=== PATIENT | male | born 1960 | race American Indian/Alaskan Native ===

== ENCOUNTER 2020-03-18 06:13 | Observation (INO) | payer OTHER ==
[2020-03-11 09:46] LABS: Hematocrit 43.2 % (35.5-45.6); Hemoglobin 14.8 gm/dl (11.8-15.2); Mean Corpuscular HGB Conc 34 % (32-34); Mean Corpuscular Volume 90 fl (84-94); Platelet Count 189 K/mm3 (140-440); Red Blood Count 4.82 M/mm3 (3.65-5.03)
[2020-03-11 10:05] LABS: Alanine Aminotransferase 28 units/L (7-56); Blood Urea Nitrogen 8 mg/dL (9-20); Calcium 9.2 mg/dL (8.4-10.2); Hemolysis Index 24
[2020-03-11 10:11] LABS: BUN/Creatinine Ratio 13
--- NOTE | 2020-03-11 13:38 | Anesthesia Consultation ---
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; last albuterol use 2wks ago) Hx Sleep Apnea: Yes (compliant with CPAP) - Cardiovascular System Hx Hypertension: Yes Hx Heart Attack/AMI: No Hx Percutaneous Transluminal Coronary Angioplasty (PTCA): No Hx Cardia Arrhythmia: No - Central Nervous System CVA: No - Gastrointestinal Hx Gastroesophageal Reflux Disease: No - Endocrine Hx Renal Disease: No Hx Liver Disease: No Hx Non-Insulin Dependent Diabetes: Yes - Other Systems Hx Cancer: Yes (hx non-hodgkins lymphoma s/p chemo in 2013) Hx Obesity: Yes (BMI 37) - Additional Comments Anesthesia Medical History Comments: No hx anesthetic complications. Developed emphysema 2/2 chemotherapy agent in 2013. Was briefly on home O2 but none at this time. Follows with pulmonology. States most recent PFTs were 2 months ago and were normal. 4mets functional capacity.
[~2020-03-18 06:13] MED LIST: ACETAMINOPHEN 500 MG TAB PO SCH; GABAPENTIN 300 MG CAP PO NR; GENTAMICIN 200 MG in SODIUM CHLORIDE 0.9% 100 ML IV SCH; GENTAMICIN 40 MG/ML VIAL 2 ML IV SCH; LACTATED RINGERS 1,000 ML IV SCH; MAGNESIUM OXIDE 400 MG TAB PO SCH; MIDAZOLAM 2 MG/2 ML INJ IV NR; VANCOMYCIN/NS 1 GM/250 ML 1 GM/250 ML BAG IV SCH
[2020-03-18] MEDS ORDERED: BACTERIOSTATIC SODIUM CHLORIDE 0.9% 30 ML VIAL INFILTRATI ONE (06:16)
[2020-03-18] MEDS ORDERED: GENTAMICIN 40 MG/ML VIAL 2 ML ONE (07:16)
[2020-03-18] MEDS ORDERED: BUPIVACAINE/PF (0.5%) 5 MG/1 ML 30 ML VIAL INFILTRATI ONE ×2 (07:16→08:47)
[2020-03-18] MEDS ORDERED: SODIUM CHLORIDE 0.9% 0 ML ONE (07:16)
[2020-03-18] MEDS ORDERED: rifAMPin 600 MG VIAL ONE (07:16)
[2020-03-18] MEDS ORDERED: NEOMY 40 MG/POLYMYXIN B 200,000 UNITS/ML (GU) AMPULE IR ONE ×2 (07:17→08:47)
[2020-03-18] MEDS ORDERED: ONDANSETRON 4 MG/2 ML INJ IV PRN ×2 (07:19→10:00)
[2020-03-18] MEDS ORDERED: HYDROmorphone 1 MG/1 ML INJ IV PRN ×2 (07:19)
--- NOTE | 2020-03-18 07:19 | Anesthesia Day of Surgery ---
Anesthesia Day of Surgery - Day of Surgery Patient Examined: Yes Patient H&P Reviewed: Yes Patient is NPO: Yes
[2020-03-18] MEDS ORDERED: LIDOCAINE MPF (2%) 20 MG/1 ML VIAL 5 ML ONE (07:29)
[2020-03-18] MEDS ORDERED: propofoL 200 MG/20 ML VIAL IV ONE (07:30)
[2020-03-18] MEDS ORDERED: SODIUM CHLORIDE 0.9% 100 ML ONE (07:47)
[2020-03-18] MEDS ORDERED: SODIUM CHLORIDE 0.9% 500 ML 500 ML ONE (07:59)
[2020-03-18] MEDS ORDERED: SODIUM CHLORIDE 0.9% 100 ML IVPB IV ONE (08:48)
[2020-03-18] MEDS ORDERED: rifAMPin 600 MG VIAL IV ONE (08:48)
[2020-03-18] MEDS ORDERED: GENTAMICIN 40 MG/ML VIAL 2 ML IV ONE (08:48)
[2020-03-18] MEDS ORDERED: SODIUM CHLORIDE 0.9% IRR 1,500 ML BOTTLE IR ONE (08:49)
[2020-03-18] MEDS ORDERED: PHENYLEPHRINE/NS 1,000 MCG/10 ML SYRINGE (OR USE) IV ONE ×2 (08:54→10:01)
--- NOTE | 2020-03-18 09:57 | Short Stay Summary ---
Short Stay Documentation Date of service: 03/18/20 - History H&P: obtained from office - Allergies and Medications Current Medications: Allergies No Known Allergies Allergy (Verified 03/07/20 16:18) Home Medications Medication Instructions Recorded Confirmed Last Taken Type Finasteride [Proscar] 5 mg PO DAILY 03/07/20 03/07/20 03/17/20 History Ibuprofen [Motrin] 600 mg PO Q8H PRN 03/07/20 03/07/20 03/11/20 History Oxybutynin [Ditropan] 10 mg PO DAILY 03/07/20 03/11/20 03/17/20 History Tamsulosin [Flomax] 0.4 mg PO BID 03/07/20 03/11/20 03/17/20 History Albuterol Sulfate [Proventil Hfa] 2 puff IH PRN PRN 03/11/20 03/18/20 1 Week Ago History ~03/11/20 Aspirin [Adult Aspirin] 81 mg PO DAILY 03/11/20 03/11/20 03/11/20 History [place] 450 mg PO DAILY 03/11/20 03/11/20 03/17/20 History Cholecalciferol Vit D3 [Vitamin D3 1,000 unit PO BID 03/11/20 03/11/20 03/17/20 History 1,000 UNIT TAB] Cider Vinegar [Apple Cider Vinegar] 450 mg PO BID 03/11/20 03/11/20 03/17/20 History Gabapentin [Neurontin] 300 mg PO DAILY 03/11/20 03/11/20 03/17/20 History Melatonin [Melatonin 3MG TAB] 6 mg PO QHS 03/11/20 03/11/20 03/17/20 History Metformin HCl [metFORMIN] 1,000 mg PO BID 03/11/20 03/18/20 4 Days Ago History ~03/14/20 Naproxen [Naprosyn] 500 mg PO PRN PRN 03/11/20 03/11/20 03/11/20 History [place]-3S/Dha/Epa/Fish Oil [Fish 1,200 mg PO DAILY 03/11/20 03/11/20 03/17/20 History Oil 1,200 mg Softgel] Active Medications Acetaminophen (Tylenol) 1,000 mg PO PREOP BLU Stop: 03/18/20 23:59 Last Admin: 03/18/20 06:50 Dose: 1,000 mg Documented by: Gabapentin (Gabapentin) 300 mg PO PREOP NR Stop: 03/18/20 23:59 Last Admin: 03/18/20 06:50 Dose: 300 mg Documented by: Hydromorphone HCl (Dilaudid) 0.25 mg IV Q10MIN PRN PRN Reason: Pain, Moderate (4-6) Stop: 03/18/20 23:00 Hydromorphone HCl (Dilaudid) 0.5 mg IV Q10MIN PRN PRN Reason: Pain , Severe (7-10) Stop: 03/18/20 23:00 Vancomycin HCl (Vancomycin/Ns 1 Gm/250 Ml) 1 gm in 250 mls @ 166.667 mls/hr IV PREOP BLU; Protocol Stop: 03/18/20 23:59 Last Admin: 03/18/20 07:10 Dose: 166.667 mls/hr Documented by: Gentamicin Sulfate 200 mg/ (Sodium Chloride) 105 mls @ 200 mls/hr IV PREOP BLU Stop: 03/18/20 23:59 Lactated Ringer's (Lactated Ringers) 1,000 mls @ 100 mls/hr IV DIRECT BLU Stop: 03/18/20 23:59 Last Admin: 03/18/20 06:55 Dose: 100 mls/hr Documented by: Magnesium Oxide (Mag-Ox) 400 mg PO PREOP BLU Stop: 03/18/20 23:59 Last Admin: 03/18/20 06:50 Dose: 400 mg Documented by: Midazolam HCl (Versed) 2 mg IV PREOP NR Stop: 03/18/20 23:59 Last Admin: 03/18/20 07:00 Dose: 2 mg Documented by: Ondansetron HCl (Zofran) 4 mg IV ONCE PRN PRN Reason: Nausea And Vomiting Stop: 03/18/20 23:00 - Brief post op/procedure progress note Date of procedure: 03/18/20 Pre-op diagnosis: ED Post-op diagnosis: same Procedure: insertion ipp, scrotoplasty (24cm + 1cm RTE) Anesthesia: GETA Surgeon: LELIA BARBOSA Estimated blood loss: 50-100ml Pathology: list (SCROTAL SKIN) Condition: stable - Hospital course Hospital course: [facility]- PT HAS AT HOME POST OP INFO ON CHART wound looks good marshall out - Disposition Condition at discharge: Stable Short Stay Discharge Plan Follow up with: [facility] [Primary Care Provider] - 7 Days
[2020-03-18] MEDS ORDERED: DEXTROSE 50% IN WATER (25GM) 50 ML SYRINGE IV PRN (10:00)
[2020-03-18] MEDS ORDERED: NALOXONE 0.4 MG/1 ML INJ IV PRN (10:00)
[2020-03-18] MEDS ORDERED: ACETAMINOPHEN 325 MG TAB PO PRN (10:00)
[2020-03-18] MEDS ORDERED: ALBUTEROL 8.5 GM MDI INHALATION IH PRN (10:06)
--- NOTE | 2020-03-18 10:44 | Operative Report ---
PREOPERATIVE DIAGNOSIS: Erectile dysfunction. POSTOPERATIVE DIAGNOSIS: Erectile dysfunction, redundant scrotal skin. PROCEDURE: Insertion of inflatable penile prosthesis (Coloplast 24 cm with 1 cm rear tip injection specialist), insertion of pharmacologic agent in corporal bodies, scrotoplasty. SURGEON: Judah Nolasco MD MILK DRIER: Kathy Sorensen. ANESTHESIA: General. ESTIMATED BLOOD LOSS: Minimal. FLUIDS: Crystalloid. COMPLICATIONS: No complications. INDICATIONS: This 59-year-old gentleman was seen in the office for a history of erectile dysfunction, refractory to medical management. He has tried oral medications, Cialis, vacuum erection device, penile injections, reviewed all the options. He agreed to proceed with surgical intervention. Risks, benefits, and complications were explained. DESCRIPTION OF PROCEDURE: The patient was taken to the operative suite, placed in a supine position. After adequate general anesthesia, he was prepped and draped in a sterile fashion. Velazquez catheter was placed on the operative field, 6 mL of 0.25% Marcaine was injected into the right corporal body. Minimal curvature and no plaque could be appreciated. Next, transscrotal incision was made with the Bovie. Sharp dissection was taken down to the corporal bodies, yellow stay sutures were used for exposure as well as a metal [place] retractor. Bilateral corporotomies were made. Stay sutures were placed with 2-0 Vicryl, measuring tool revealed 25 cm length; therefore, a 24 cm Coloplast device with 1 cm rear tip injection specialist was prepped, placed in the corporal bodies without difficulty. Corporotomies were closed with 2-0 Vicryl in a running fashion, 125 mL reservoir was prepped, placed in the retropubic space via the right external ring, 110 mL sterile water was left in the reservoir, 20 mL saline was left in the cylinders. Three connections were used for the pump, the two cylinders as well as the reservoir using the quick click connection system. Insufflation revealed an adequate appearance of the device. No curvature could be appreciated. Throughout the procedure, copious irrigation was performed. Adequate hemostasis was achieved, antibiotic solution was used as an irrigant. The pump was placed in the dependent portion of the scrotum. Pursestring suture followed by the dartos layer using 2-0 Vicryl in a running fashion. The transverse incision was closed in a cephalad longitudinal closure. Scrotoplasty was performed to improve cosmetic appearance. A 3-0 Vicryl in interrupted fashion followed by [place] and a Mummy wrap was placed. ____ the device was 70% inflated. The patient was extubated and taken to recovery room. The patient has [place] and Bactrim at home. Kathy Sorensen was present throughout the procedure at the bedside to assist with dissection. JOB# [id number] CHARI/NTS
--- NOTE | 2020-03-18 11:00 | Post Anesthesia Evaluation ---
- Post Anesthesia Evaluation Patient Participated: Yes Airway Patent: Yes Stable Respiratory Function: Yes Nausea/Vomiting: No Temp > 96.8F: Yes Pain Manageable: Yes Adequeate Hydration: Yes Anesthesia Complications: No Block Receding Appropriately: Not Applicable Patient on Ventilator: No
[2020-03-18] MEDS ORDERED: ALBUTEROL 2.5 MG/3 ML NEBU IH PRN (12:00)
[2020-03-18] MEDS: INSULIN REGULAR, HUMAN 100 UNIT/ML 3ML VIAL SUB-Q SCH ×3 (12:17→22:48)
[2020-03-18] MEDS: HYDROcodone/ACETAMINOPHEN 5-325 MG TAB PO PRN ×2 (12:19→15:12)
--- NOTE | 2020-03-18 12:52 | Consultation ---
History of Present Illness - Reason for Consult Consult date: 03/18/20 Medical management Requesting physician: LELIA BARBOSA - History of Present Illness 59-year-old male patient with erectile dysfunction evaluated by urology Patient underwent insertion ipp, scrotoplasty (24cm + 1cm RTE) procedure Patient had multiple medical problems And hospitalist service was consulted for medical management Patient has no new complaints today Except for some pain Past History Past Medical History: diabetes, hypertension, hyperlipidemia, other (Peripheral neuropathy, erectile dysfunction) Past Surgical History: Other (s/p Penile prosthesis) Social history: denies: smoking, alcohol abuse, prescription drug abuse Family history: no significant family history Medications and Allergies Allergies Allergy/AdvReac Type Severity Reaction Status Date / Time No Known Allergies Allergy Verified 03/07/20 16:18 Home Medications Medication Instructions Recorded Confirmed Last Taken Type Finasteride [Proscar] 5 mg PO DAILY 03/07/20 03/07/20 03/17/20 History Ibuprofen [Motrin] 600 mg PO Q8H PRN 03/07/20 03/07/20 03/11/20 History Oxybutynin [Ditropan] 10 mg PO DAILY 03/07/20 03/11/20 03/17/20 History Tamsulosin [Flomax] 0.4 mg PO BID 03/07/20 03/11/20 03/17/20 History Albuterol Sulfate [Proventil Hfa] 2 puff IH PRN PRN 03/11/20 03/18/20 1 Week Ago History ~03/11/20 Aspirin [Adult Aspirin] 81 mg PO DAILY 03/11/20 03/11/20 03/11/20 History [place] 450 mg PO DAILY 03/11/20 03/11/20 03/17/20 History Cholecalciferol Vit D3 [Vitamin D3 1,000 unit PO BID 03/11/20 03/11/20 03/17/20 History 1,000 UNIT TAB] Cider Vinegar [Apple Cider Vinegar] 450 mg PO BID 03/11/20 03/11/20 03/17/20 History Gabapentin [Neurontin] 300 mg PO DAILY 03/11/20 03/11/20 03/17/20 History Melatonin [Melatonin 3MG TAB] 6 mg PO QHS 03/11/20 03/11/20 03/17/20 History Metformin HCl [metFORMIN] 1,000 mg PO BID 03/11/20 03/18/20 4 Days Ago History ~03/14/20 Naproxen [Naprosyn] 500 mg PO PRN PRN 03/11/20 03/11/20 03/11/20 History [place]-3S/Dha/Epa/Fish Oil [Fish 1,200 mg PO DAILY 03/11/20 03/11/20 03/17/20 History Oil 1,200 mg Softgel] Active Meds: Active Medications Acetaminophen (Tylenol) 1,000 mg PO PREOP BLU Stop: 03/18/20 23:59 Last Admin: 03/18/20 06:50 Dose: 1,000 mg Documented by: Acetaminophen (Tylenol) 650 mg PO Q4H PRN PRN Reason: Pain MILD(1-3)/Fever >100.5/WERNER Hydrocodone Bitart/Acetaminophen ([place] 5/325) 2 each PO Q6H PRN PRN Reason: Pain, Moderate (4-6) Albuterol (Proventil) 2.5 mg IH Q4HRT PRN PRN Reason: Shortness Of Breath Cholecalciferol (Vitamin D3) 1,000 unit PO BID BLU Dextrose (D50w (25gm) Syringe) 50 ml IV Q30MIN PRN; Protocol PRN Reason: Hypoglycemia Finasteride (Proscar) 5 mg PO DAILY BLU Gabapentin (Gabapentin) 300 mg PO PREOP NR Stop: 03/18/20 23:59 Last Admin: 03/18/20 06:50 Dose: 300 mg Documented by: Gabapentin (Gabapentin) 300 mg PO DAILY [facility] Vancomycin HCl (Vancomycin/Ns 1 Gm/250 Ml) 1 gm in 250 mls @ 166.667 mls/hr IV PREOP BLU; Protocol Stop: 03/18/20 23:59 Last Admin: 03/18/20 07:10 Dose: 166.667 mls/hr Documented by: Gentamicin Sulfate 200 mg/ (Sodium Chloride) 105 mls @ 200 mls/hr IV PREOP BLU Stop: 03/18/20 23:59 Sodium Chloride (Nacl 0.45% 1000 Ml) 1,000 mls @ 125 mls/hr IV DIRECT BLU Insulin Human Regular (Humulin R) 0 unit SUB-Q ACHS BLU; Protocol Magnesium Oxide (Mag-Ox) 400 mg PO PREOP BLU Stop: 03/18/20 23:59 Last Admin: 03/18/20 06:50 Dose: 400 mg Documented by: Metformin HCl (Glucophage) 1,000 mg PO BIDDIAB [facility] Midazolam HCl (Versed) 2 mg IV PREOP NR Stop: 03/18/20 23:59 Last Admin: 03/18/20 07:00 Dose: 2 mg Documented by: Morphine Sulfate (Morphine) 2 mg IV Q4H PRN PRN Reason: Pain, Moderate (4-6) Naloxone HCl (Naloxone) 0.1 mg IV Q2MIN PRN PRN Reason: Res Rate </= 8 or 02 SAT < 92% Ondansetron HCl (Zofran) 4 mg IV ONCE PRN PRN Reason: Nausea And Vomiting Stop: 03/18/20 23:00 Ondansetron HCl (Zofran) 4 mg IV Q8H PRN PRN Reason: Nausea And Vomiting Oxybutynin Chloride (Ditropan) 10 mg PO DAILY [facility] Sodium Chloride (Sodium Chloride Flush Syringe 10 Ml) 10 ml IV BID [facility] Sodium Chloride (Sodium Chloride Flush Syringe 10 Ml) 10 ml IV PRN PRN PRN Reason: LINE FLUSH Tamsulosin HCl (Flomax) 0.4 mg PO BID [facility] Zolpidem Tartrate (Ambien) 5 mg PO QHS PRN PRN Reason: Insomnia Review of Systems Constitutional: no weight loss, no weight gain Cardiovascular: no chest pain, no shortness of breath Respiratory: no cough, no shortness of breath Gastrointestinal: no abdominal pain, no nausea, no vomiting Genitourinary Male: other (Postop pain), no dysuria, no hematuria Musculoskeletal: no myalgias, no arthritis Integumentary: no rash, no lesions Neurological: no tingling, no seizures Psychiatric: no anxiety, no depression Endocrine: no cold intolerance, no heat intolerance Hematologic/Lymphatic: no easy bruising, no easy bleeding Allergic/Immunologic: no urticaria, no allergic rhinitis Exam - Constitutional Vitals: Temp Pulse Resp BP Pulse Ox 98.0 F 70 22 112/79 97 03/18/20 11:33 03/18/20 11:33 03/18/20 11:33 03/18/20 11:33 03/18/20 11:33 General appearance: Present: mild distress, other (Postop pain) - EENT Eyes: Present: PERRL, EOM intact - Neck Neck: Present: supple, normal ROM - Respiratory Respiratory effort: normal Respiratory: bilateral: diminished, negative: rales, rhonchi, wheezing - Cardiovascular Rhythm: regular Heart Sounds: Present: S1 & S2 - Extremities Extremities: no ischemia, No edema - Abdominal General gastrointestinal: Present: soft, non-tender, non-distended, normal bowel sounds - Integumentary Integumentary: Present: clear, warm - Musculoskeletal Musculoskeletal: strength equal bilaterally - Psychiatric Psychiatric: appropriate mood/affect, cooperative - Neurologic Neurologic: moves all extremities Results - Labs CBC & Chem 7: 03/11/20 09:30 03/11/20 09:30 Labs: Abnormal lab results 03/18/20 03/18/20 Range/Units 07:01 10:14 POC Glucose 221 H 196 H (70-105) mg/dL Assessment and Plan --Type 2 diabetes mellitus; Accu-Chek sliding scale coverage ADA diet Oral hypoglycemics, insulin as needed --Hypertension; moderate control Resume home antihypertensives As needed hydralazine --Diabetic neuropathy; Continue gabapentin and supportive care --History of erectile dysfunction; S/p penile prosthesis placement Postop management per urology --Obesity; BMI 37.3 Patient needs weight reduction when medically stable Dietary modification exercise as tolerated and weight reduction --DVT prophylaxis; SCDs, defer pharmacologic anticoagulation to urology We will closely monitor the patient and adjust the management as needed Thank you for this consultation we will follow the patient along with you
[2020-03-18] MEDS: MORPHINE 2 MG/1 ML INJ IV PRN ×2 (15:07→20:19)
[2020-03-18] MEDS: metFORMIN 500 MG TAB PO SCH (17:38)
[2020-03-18] MEDS ORDERED: oxyCODONE /ACETAMINOPHEN 5-325MG TAB PO PRN (20:07)
[2020-03-18] MEDS ORDERED: NON-FORMULARY EACH (Metformin Hcl [Metformin] 1,000 MG) PO SCH (22:00)
[2020-03-18] MEDS ORDERED: ZOLPIDEM 5 MG TAB PO PRN (22:00)
[2020-03-18] MEDS: CHOLECALCIFEROL (VIT D3) 1000 UNIT (25 mcg) TAB PO SCH (22:37)
[2020-03-18] MEDS: TAMSULOSIN 0.4 MG CAP PO SCH (22:37)
[2020-03-18] MEDS: SODIUM CHLORIDE 0.45% 1000 ML 1,000 ML IV SCH (22:37)
[2020-03-19] MEDS: MORPHINE 2 MG/1 ML INJ IV PRN (03:44)
[2020-03-19] MEDS: HYDROcodone/ACETAMINOPHEN 5-325 MG TAB PO PRN (06:21)
[2020-03-19] MEDS: SODIUM CHLORIDE 0.45% 1000 ML 1,000 ML IV SCH (06:26)
[2020-03-19 08:45] VITALS: BP 133/79
[2020-03-19] MEDS: TAMSULOSIN 0.4 MG CAP PO SCH (09:24)
[2020-03-19] MEDS: metFORMIN 500 MG TAB PO SCH (09:24)
[2020-03-19] MEDS: INSULIN REGULAR, HUMAN 100 UNIT/ML 3ML VIAL SUB-Q SCH (09:24)
[2020-03-19] MEDS: CHOLECALCIFEROL (VIT D3) 1000 UNIT (25 mcg) TAB PO SCH (09:24)
[2020-03-19] MEDS ORDERED: GABAPENTIN 300 MG CAP PO SCH (10:00)
[2020-03-19] MEDS ORDERED: OXYBUTYNIN 5 MG TAB PO SCH (10:00)
[2020-03-19] MEDS ORDERED: FINASTERIDE 5 MG TAB PO SCH (10:00)
--- NOTE | 2020-03-19 12:23 | Progress Note ---
Assessment and Plan Assessment and plan: --Type 2 diabetes mellitus; Accu-Chek sliding scale coverage ADA diet Oral hypoglycemics, insulin as needed --Hypertension; well controlled Resume home antihypertensives As needed hydralazine --Diabetic neuropathy; Continue gabapentin and supportive care --History of erectile dysfunction; S/p penile prosthesis placement Postop management per urology --Obesity; BMI 37.3 Patient needs weight reduction when medically stable Dietary modification exercise as tolerated and weight reduction Medically stable for discharge Patient needs to follow-up with primary care physician for her medical needs I will sign off Thank you for this consultation History Interval history: Patient has no new complaints Urology planning to discharge the patient Vital signs reviewed Hospitalist Physical - Physical exam Narrative exam: No changes in the physical - Constitutional Vitals: Temp Pulse Resp BP Pulse Ox 98.3 F 100 H 18 133/79 98 03/19/20 08:10 03/19/20 08:10 03/19/20 08:10 03/19/20 08:10 03/19/20 08:10 Results - Labs CBC & Chem 7: 03/11/20 09:30 03/11/20 09:30 Labs: Laboratory Last Values WBC 5.3 K/mm3 (4.5-11.0) 03/11/20 09:30 RBC 4.82 M/mm3 (3.65-5.03) 03/11/20 09:30 Hgb 14.8 gm/dl (11.8-15.2) 03/11/20 09:30 Hct 43.2 % (35.5-45.6) 03/11/20 09:30 MCV 90 fl (84-94) 03/11/20 09:30 MCH 31 pg (28-32) 03/11/20 09:30 MCHC 34 % (32-34) 03/11/20 09:30 RDW 14.0 % (13.2-15.2) 03/11/20 09:30 Plt Count 189 K/mm3 (140-440) 03/11/20 09:30 Sodium 136 mmol/L (137-145) L 03/11/20 09:30 Potassium 4.3 mmol/L (3.6-5.0) 03/11/20 09:30 Chloride 99.0 mmol/L (98-107) 03/11/20 09:30 Carbon Dioxide 28 mmol/L (22-30) 03/11/20 09:30 Anion Gap 13 mmol/L 03/11/20 09:30 BUN 8 mg/dL (9-20) L 03/11/20 09:30 Creatinine 0.6 mg/dL (0.8-1.3) L 03/11/20 09:30 Estimated GFR > 60 ml/min 03/11/20 09:30 BUN/Creatinine Ratio 13 % 03/11/20 09:30 Glucose 240 mg/dL (75-100) H 03/11/20 09:30 POC Glucose 274 mg/dL (70-105) H 03/19/20 08:13 Calcium 9.2 mg/dL (8.4-10.2) 03/11/20 09:30 Total Bilirubin 0.40 mg/dL (0.1-1.2) 03/11/20 09:30 AST 22 units/L (5-40) 03/11/20 09:30 ALT 28 units/L (7-56) 03/11/20 09:30 Alkaline Phosphatase 71 units/L (35-129) 03/11/20 09:30 Total Protein 7.2 g/dL (6.3-8.2) 03/11/20 09:30 Albumin 4.0 g/dL (3.9-5) 03/11/20 09:30 Albumin/Globulin Ratio 1.3 % 03/11/20 09:30 Coronavirus (PCR) Negative (Negative) 03/11/20 Unknown Velazquez/IV: Voiding Method Urinal IV Catheter Type [Right Peripheral IV Forearm] Active Medications - Current Medications Current Medications: Generic Name Dose Route Start Last Admin Trade Name Freq PRN Reason Stop Dose Admin Acetaminophen 650 mg 03/18/20 10:00 Tylenol PO Q4H PRN Pain MILD(1-3)/Fever >100.5/WERNER Hydrocodone Bitart/Acetaminophen 2 each 03/18/20 10:00 03/19/20 06:21 [place] 5/325 PO 2 each Q6H PRN Administration Pain, Moderate (4-6) Albuterol 2.5 mg 03/18/20 12:00 Proventil IH Q4HRT PRN Shortness Of Breath Cholecalciferol 1,000 unit 03/18/20 22:00 12/01/20 09:24 Vitamin D3 PO 1,000 unit BID BLU Administration Dextrose 50 ml 03/18/20 10:00 D50w (25gm) Syringe IV Q30MIN PRN Hypoglycemia Protocol Finasteride 5 mg 03/19/20 10:00 03/19/20 09:24 Proscar PO 5 mg DAILY BLU Administration Gabapentin 300 mg 03/19/20 10:00 03/19/20 09:24 Gabapentin PO 300 mg DAILY BLU Administration Sodium Chloride 1,000 mls @ 125 mls/hr 03/18/20 10:00 03/19/20 06:26 Nacl 0.45% 1000 Ml IV 125 mls/hr DIRECT BLU Administration Insulin Human Regular 0 unit 03/18/20 22:00 03/19/20 09:24 Humulin R SUB-Q 4 unit ACHS BLU Administration Protocol Metformin HCl 1,000 mg 03/18/20 17:00 03/19/20 09:24 Glucophage PO 1,000 mg BIDDIAB BLU Administration Morphine Sulfate 2 mg 03/18/20 10:00 03/19/20 03:44 Morphine IV 2 mg Q4H PRN Administration Pain, Moderate (4-6) Naloxone HCl 0.1 mg 03/18/20 10:00 Naloxone IV Q2MIN PRN Res Rate </= 8 or 02 SAT < 92% Ondansetron HCl 4 mg 03/18/20 10:00 Zofran IV Q8H PRN Nausea And Vomiting Oxybutynin Chloride 10 mg 03/19/20 10:00 03/19/20 09:24 Ditropan PO 10 mg DAILY BLU Administration Sodium Chloride 10 ml 03/18/20 10:00 03/19/20 09:25 Sodium Chloride Flush Syringe 10 Ml IV 10 ml BID BLU Administration Sodium Chloride 10 ml 03/18/20 10:00 Sodium Chloride Flush Syringe 10 Ml IV PRN PRN LINE FLUSH Tamsulosin HCl 0.4 mg 03/18/20 22:00 03/19/20 09:24 Flomax PO 0.4 mg BID BLU Administration Zolpidem Tartrate 5 mg 03/18/20 22:00 03/18/20 22:37 Ambien PO 5 mg QHS PRN Administration Insomnia
== END 2020-03-19 12:15 | disposition home or self-care (01) ==
LOC: OR 06:13 → 3B-SURG 10:00
PROVIDERS: ADMIT Urology; ATTEND Urology
DX: N52.9 Male erectile dysfunction, unspecified (principal); Z20.828 Contact with and (suspected) exposure to other viral communicable diseases; E29.1 Testicular hypofunction; I10 Essential (primary) hypertension; E11.40 Type 2 diabetes mellitus with diabetic neuropathy, unspecified; E66.9 Obesity, unspecified; Z79.4 Long term (current) use of insulin; Z71.3 Dietary counseling and surveillance; Z79.82 Long term (current) use of aspirin; Z68.37 Body mass index [BMI] 37.0-37.9, adult; Z79.899 Other long term (current) drug therapy
CPT/HCPCS: 36415; 54401; 80053; 82962; 85027; 88305; 96361; 96372; 96374; 96376; C1813; G0378; J1170; J1580; J2250; J2270; J2370; J2405; J2704; J3370; J3490; J7030; J7040; J7120; U0003; J1815